=== PATIENT | male | born 1965 | race Caucasian/White ===

== ENCOUNTER 2021-05-25 09:40 | Emergency (ER) | payer OTHER ==
[~2021-05-25] VITALS: Ht 188 cm; Wt 90.4 kg
[~2021-05-25 09:40] MED LIST: ASPI81TA26 PO; ATENOLOL/HCTZ; ATOR1TAB19 PO; AZOR10TA3 PO; NEXI40CA PO; VITA-182 PO
[2021-05-25] MEDS ORDERED: TETRACAINE 0.5% OPHTH SOLN 4ML OS ONE (12:05)
[2021-05-25] MEDS ORDERED: FLUORESCEIN OPHTH 1 MG STRIP OS ONE (12:05)
[2021-05-25] MEDS ORDERED: OCUF0.25 OS (12:20)
[2021-05-25 12:28] VITALS: BP 133/75
== END 2021-05-25 12:31 | disposition home or self-care (01) ==
LOC: M ED 09:40
DX: S05.02XA Injury of conjunctiva and corneal abrasion without foreign body, left eye, initial encounter (principal); Y92.64 Mine or pit as the place of occurrence of the external cause; Y93.89 Activity, other specified; Y99.0 Civilian activity done for income or pay; I10 Essential (primary) hypertension; M54.9 Dorsalgia, unspecified; F17.220 Nicotine dependence, chewing tobacco, uncomplicated; Z79.899 Other long term (current) drug therapy; Z79.82 Long term (current) use of aspirin

== ENCOUNTER → 2022-02-08 | Outpatient (CLI) | payer OTHER ==
[~2022-02-08] MED LIST changes: +ATEN50TA9; +IBUP-1022; +LISI20TA33; +OCUF0.25 OS; +OMEP40CA5; +POTA-141 PO; +PRAZ1CAP; +ROSU20TA5; +SUPETAB56 PO; +TAMS1CAP17; +VITA100093 PO; +ZYRTTAB8 PO
== END ==
LOC: M LABSMTC 09:14
PROVIDERS: ATTEND Anesthesiology
DX: Z01.818 Encounter for other preprocedural examination (principal); Z11.52 Encounter for screening for COVID-19

== ENCOUNTER → 2024-10-07 | Outpatient (CLI) | payer OTHER ==
[~2024-10-07] MED LIST changes: +AMLO-605 PO; -AZOR10TA3 PO; -ROSU20TA5; +ROSU20TA86
[2024-10-07 13:48] LABS: ALBUMIN 4.3 G/DL (3.2-5.2); ALKALINE PHOSPHATASE 43 U/L (40-129); ALT/SGPT 32 U/L (7.0-40); AST/SGOT 17 U/L (<34); BILIRUBIN,TOTAL 0.5 MG/DL (0.3-1.2); BLOOD UREA NITROGEN 14 MG/DL (9-23); CALCIUM LEVEL 10.1 MG/DL (8.3-10.6); CARBON DIOXIDE LEVEL 30 MMOL/L (20-31); CHLORIDE LEVEL 95 MMOL/L (98-107); CHOLESTEROL LEVEL 237 MG/DL (<200); CHOLESTEROL RISK RATIO 3.01 (<5); CREATININE FOR GFR 0.71 MG/DL (0.70-1.30); GLOMERULAR FILTRATION RATE > 60.0 (>49); GLUCOSE, FASTING 105 MG/DL (74-106); HDL CHOLESTEROL 78.6 MG/DL (>40); LDL CHOLESTEROL 146.4 MG/DL (<100); NON-HDL-C 158.4 MG/DL; POTASSIUM SERUM 3.8 MMOL/L (3.5-5.1); SODIUM LEVEL 129 MMOL/L (136-145); TOTAL PROTEIN 7.1 G/DL (5.7-8.2); TRIGLYCERIDES LEVEL 60 MG/DL (<150)
[2024-10-07 13:52] LABS: HEMATOCRIT 37.8 % (42.0-52.0); HEMOGLOBIN 13.7 g/dl (13.5-17.5); MEAN CORPUSCULAR HEMOGLOBIN 33.2 pg (27.0-33.0); MEAN CORPUSCULAR HGB CONC 36.2 g/dl (32.0-36.5); MEAN CORPUSCULAR VOLUME 91.5 fl (80.0-96.0); PLATELET COUNT, AUTOMATED 268 10^3/uL (150-450); RED BLOOD COUNT 4.13 10^6/uL (4.30-6.10); WHITE BLOOD COUNT 8.5 10^3/uL (4.0-10.0)
[2024-10-08 08:08] LABS: T P ELECTROPHORESIS SO 6.8 g/dL (6.1-8.1)
== END ==
LOC: M WUC 09:37
PROVIDERS: ATTEND Physician Assistant
DX: M25.551 Pain in right hip (principal); C90.00 Multiple myeloma not having achieved remission; I10 Essential (primary) hypertension; E78.5 Hyperlipidemia, unspecified

== ENCOUNTER → 2024-11-14 | Outpatient (REF) | payer OTHER ==
[2024-11-14 16:15] LABS: TOTAL VOLUME, URINE 2250 ML
[2024-11-14 18:33] LABS: URINE TOTAL PROTEIN < 6.0 MG/DL (0-14)
== END ==
LOC: M LAB REF 13:03
PROVIDERS: ATTEND Internal Medicine Hematology & Oncology
DX: M89.9 Disorder of bone, unspecified (principal)

== ENCOUNTER → 2024-11-22 | Outpatient (CLI) | payer OTHER | LOC: M PLARAD 08:58 | PROVIDERS: ATTEND Internal Medicine Hematology & Oncology | DX: M89.9 Disorder of bone, unspecified (principal) | CPT/HCPCS: 78815; A9552 ==

== ENCOUNTER → 2024-12-07 | Outpatient (CLI) | payer OTHER ==
[~2024-12-07] MED LIST changes: +PROHANCE 279.3MG/ML 15ML VIAL ONE; +PROHANCE 279.3MG/ML 5ML VIAL ONE
== END ==
LOC: M PLAIMG 08:13
PROVIDERS: ATTEND Internal Medicine Medical Oncology
DX: M89.8X5 Other specified disorders of bone, thigh (principal)

== ENCOUNTER 2024-12-11 02:24 | Emergency (ER) | payer OTHER ==
[~2024-12-11] VITALS: Ht 188 cm; Wt 95.3 kg
[~2024-12-11 02:24] MED LIST changes: -PROHANCE 279.3MG/ML 15ML VIAL ONE; -PROHANCE 279.3MG/ML 5ML VIAL ONE
[2024-12-11 03:13] LABS: KETONE, URINE AUTO RFX NEGATIVE (NEGATIVE); LEUKOCYTE ESTERASE UR AUTO RFX NEGATIVE (NEGATIVE); MUCUS, URINE RFX SMALL (NEGATIVE); NITRITE, URINE AUTO RFX NEGATIVE (NEGATIVE); RBC, URINE AUTO RFX 0 /HPF (0-3); SQUAM EPITHELIAL CELL UR AURFX 0 /HPF (0-6); WBC, URINE AUTO RFX 0 /HPF (0-3)
[2024-12-11] MEDS: KETOROLAC 30 MG/ML 1ML VIAL IM ONE (06:55)
[2024-12-11] MEDS: methocarbamoL 750 MG TAB PO ONE (06:55)
[2024-12-11 07:30] VITALS: BP 140/78; TEMP 98; O2SAT 97
[2024-12-11] MEDS ORDERED: METH-1165 PO (07:36)
== END 2024-12-11 07:56 | disposition home or self-care (01) ==
LOC: M ED 02:24
DX: M54.50 Low back pain, unspecified (principal); I10 Essential (primary) hypertension; E78.5 Hyperlipidemia, unspecified; Z79.899 Other long term (current) drug therapy
CPT/HCPCS: 81001; 96372; 99284; J1885

== ENCOUNTER 2025-01-04 06:59 | Outpatient (RCR) | payer OTHER ==
[~2025-01-04 06:59] MED LIST changes: -ATEN50TA9; +ATEN50TA9 PO; +CLAR10CA3 PO; -IBUP-1022; +IBUP-1022 PO; -LISI20TA33; +LISI20TA33 PO; +METH-1165 PO; -OMEP40CA5; +OMEP40CA5 PO; +POTA99CA2 PO; -PRAZ1CAP; +PRAZ1CAP PO; -ROSU20TA86; +ROSU20TA86 PO; -TAMS1CAP17; +TAMS1CAP17 PO
== END 2025-01-25 ==
LOC: M PT 06:59
PROVIDERS: ATTEND Orthopaedic Surgery
DX: M70.61 Trochanteric bursitis, right hip (principal)

== ENCOUNTER 2025-01-05 09:29 | Day surgery (SDC) | payer OTHER ==
[~2025-01-05] VITALS: Ht 188 cm; Wt 91.5 kg
[2025-01-05] MEDS ORDERED: propofoL 200 MG/20 ML VIAL As Ordered ONE (11:08)
[2025-01-05 12:04] VITALS: BP 153/92; O2SAT 99
== END 2025-01-05 12:16 | disposition home or self-care (01) ==
LOC: M OPP 09:29
PROVIDERS: ATTEND Surgery
DX: K63.5 Polyp of colon (principal); Z86.0100 Personal history of colon polyps, unspecified; Z79.899 Other long term (current) drug therapy; F17.220 Nicotine dependence, chewing tobacco, uncomplicated

== ENCOUNTER → 2025-04-21 | Outpatient (CLI) | payer OTHER ==
[~2025-04-21] MED LIST changes: +ISOVUE-300 61% 100 ML VIAL As Ordered ONE; +methylPREDNISolone SUSP 40 MG/ML 1 ML VIAL As Ordered ONE
== END ==
LOC: M RAD 14:14
PROVIDERS: ATTEND Orthopaedic Surgery
DX: M70.61 Trochanteric bursitis, right hip (principal)
CPT/HCPCS: 20611; J0665; J1010